=== PATIENT | female | born 1960 | race Caucasian/White ===

== ENCOUNTER 2021-08-31 11:21 | Emergency (ER) | payer BC ==
[2021-08-31] MEDS ORDERED: IBUPROFEN 600 MG TAB PO STA (13:33)
--- NOTE | 2021-08-31 13:37 | ED ---
General Adult HPI - General Chief complaint: Upper Respiratory Infection Stated complaint: Covid+/BAM Time Seen by Provider: 08/31/21 13:06 Source: patient, RN notes reviewed Mode of arrival: ambulatory Limitations: no limitations - History of Present Illness Initial comments: 61-year-old female presents to the emergency department requesting monoclonal antibody infusion. Patient states she was diagnosed with Covid, and symptoms began yesterday. States she has had a fever, headache, and body aches. Has a nonproductive cough that patient states is normal for her. States she has a history of COPD with reduced lung capacity. Has been vaccinated, but did not receive the booster. Tylenol prior to arrival. Denies chest pain, tightness, shortness of breath, abdominal pain, nausea, vomiting, diarrhea, or dysuria. - Related Data Previous Rx's Medication Instructions Recorded Ibuprofen [Motrin] 600 mg PO Q8HR PRN #30 tab 08/31/21 Allergies Allergy/AdvReac Type Severity Reaction Status Date / Time pseudoephedrine Allergy Unknown Verified 08/31/21 12:58 [From [facility]] Review of Systems ROS Statement: Those systems with pertinent positive or pertinent negative responses have been documented in the HPI. ROS Other: All systems not noted in ROS Statement are negative. Past Medical History Past Medical History: COPD, Hyperlipidemia Additional Past Medical History / Comment(s): 30% lung capacity History of Any Multi-Drug Resistant Organisms: MRSA Date of last positivie culture/infection: 2004 MDRO Source:: lungs Past Surgical History: Tubal Ligation Additional Past Surgical History / Comment(s): collapsed lungs Past Psychological History: No Psychological Hx Reported Smoking Status: Former smoker Past Alcohol Use History: Occasional Past Drug Use History: None Reported General Exam Limitations: no limitations General appearance: alert, in no apparent distress (Well-developed, well- nourished female in no acute distress. Initial temperature 98.9, pulse 80, respirations 20, blood pressure 116/67, pulse ox 94% on room air.) ENT exam: Present: normal exam, normal oropharynx, mucous membranes moist Respiratory exam: Present: decreased breath sounds (Slightly decreased breath sounds throughout the lung mcneill; no adventitious noises.). Absent: respiratory distress, wheezes, rales, rhonchi, stridor Cardiovascular Exam: Present: regular rate, normal rhythm, normal heart sounds. Absent: systolic murmur, diastolic murmur, rubs, gallop, clicks GI/Abdominal exam: Present: soft, normal bowel sounds. Absent: distended, tenderness, guarding, rebound, rigid Neurological exam: Present: alert, oriented X3, CN II-XII intact Psychiatric exam: Present: normal affect, normal mood Skin exam: Present: warm, dry, intact, normal color. Absent: rash Course Vital Signs 08/31/21 08/31/21 12:53 15:14 Temperature 98.9 F 98.7 F Pulse Rate 88 72 Respiratory 20 16 Rate Blood Pressure 116/67 118/67 O2 Sat by Pulse 94 L 90 L Oximetry - Reevaluation(s) Reevaluation #1: 08/31/21 15:50 When reviewing discharge instructions with patient, she states that her coal sampler tells her to go to the emergency room if her oxygen level is in the low 80s as a normal range for her is 85%-92%. Medical Decision Making - Medical Decision Making 61-year-old female with a past medical history of COPD presents to the emergency department requesting monoclonal antibody infusion. Patient states she tested positive for Covid today, with symptom onset yesterday. Upon exam, patient is well-appearing and in no acute distress. Room air saturation 90% or greater. She is afebrile, not tachycardic nor tachypneic. No cough, congestion, shortness of breath, or difficulty breathing. Lungs sounds are slightly diminished. Chest x-ray show COPD with no acute active disease process. Risks and benefits of monoclonal antibody infusion were discussed with patient. She verbalizes understanding and is agreeable. Infusion tolerated without any adverse reaction. Will be discharged home to follow up with her primary care provider and/or coal sampler. Strict return parameters were discussed in detail. Patient verbalizes understanding and agrees with this plan. This patient's care was discussed with my attending Dr. Tripp. - Radiology Data Radiology results: report reviewed, image reviewed Two-view chest x-ray was obtained. Report was reviewed in its entirety. Impression per Dr. Armando is COPD. No active cardiopulmonary disease. No sal nge. Disposition Clinical Impression: COVID-19 Disposition: HOME SELF-CARE Condition: Stable Instructions (If sedation given, give patient instructions): Coronavirus Disease 2019 (COVID-19) Additional Instructions: Continue your regular home medication regimen. May take Tylenol or Motrin as needed for fever or body aches. You should continue to isolate for 10 days from symptom onset. Take vitamin C, vitamin D, and Zinc few are not already taking a multivitamin. Consider telephone or video visit for follow-up with your coal sampler or PCP on Friday. Return to the emergency department with any new, worsening, or concerning symptoms. Prescriptions: Ibuprofen [Motrin] 600 mg PO Q8HR PRN #30 tab PRN Reason: Pain Is patient prescribed a controlled substance at d/c from ED?: No Referrals: Shanna Herrera DO [Primary Care Provider] - 1-2 days Time of Disposition: 16:00
[2021-08-31] MEDS ORDERED: SODIUM CHLORIDE 0.9% 50 ML IVPB ONE (14:00)
[2021-08-31] MEDS ORDERED: BAMLANIVIMAB (EUA) 700 MG, ETESEVIMAB (EUA) 1,400 MG in SODIUM CHLORIDE 0.9% 100 ML IVPB ONE (14:30)
[2021-08-31 15:16] VITALS: BP 118/67; PULSE 72; RESP 16; TEMP 98.7
--- NOTE | 2021-08-31 15:29 | XR ---
EXAMINATION TYPE: XR chest 2V DATE OF EXAM: 08/31/2021 COMPARISON: 05/11/2010 HISTORY: Cough. TECHNIQUE: FINDINGS: Heart and mediastinum are within normal limits. Lungs are clear of consolidation. There is mild flattening of the diaphragm. There are no hilar masses. The bony thorax is intact. IMPRESSION: COPD. No active cardiopulmonary disease. No change.
== END 2021-08-31 15:52 | disposition home or self-care (01) ==
LOC: EC 11:21
DX: U07.1 COVID-19 (principal); J44.9 Chronic obstructive pulmonary disease, unspecified; Z88.8 Allergy status to other drugs, medicaments and biological substances; Z87.891 Personal history of nicotine dependence
CPT/HCPCS: 71046; 99284; J3490

== ENCOUNTER → 2022-10-01 | Outpatient (CLI) | payer BC, OTHER ==
--- NOTE | 2022-10-01 14:47 | MR ---
EXAMINATION TYPE: MR humerus LT wo/w con DATE OF EXAM: 10/01/2022 COMPARISON: None. HISTORY: Palpable lump on left humerus, extends from axilla to elbow, markers placed at each end. CONTRAST: Standard multiplanar, multisequence MRI departmental protocol images were obtained without contrast a nd with 6 mL intravenous Gadavist gadolinium contrast. FINDINGS: The area of concern marked by distal marker distal humeral level coronal image 20 and by pr oximal marker in the left axilla proximal humeral diaphyseal level axial image 33. These are along th e medial aspect of the left humerus. Left humerus appears intact. No suspicious edema or enhancement is seen. There are normal vessels jose francisco ng medial portion of the left humerus identified. There is no concerning solid or cystic mass or flui d collection in the left humerus with particular attention to area of clinical concern medial portion and soft tissue. Visualized portion of the left shoulder and elbow joints appear within normal limit s. Muscle bulk is maintained. IMPRESSION: As above. No obvious suspicious medial mass identified.
== END | disposition home or self-care (01) ==
LOC: RADMRIMAIN 11:35
PROVIDERS: ATTEND Physician Assistant
DX: M79.89 Other specified soft tissue disorders (principal); R22.32 Localized swelling, mass and lump, left upper limb
CPT/HCPCS: 73220; A9585

== ENCOUNTER 2023-10-09 09:49 | Day surgery (SDC) | payer BC, OTHER ==
--- NOTE | 2023-10-09 07:37 | P.GSHP ---
History of Present Illness H&P Date: 10/09/23 CHIEF COMPLAINT: Colon screen HISTORY OF PRESENT ILLNESS: The patient is a 63-year-old female who presents for colon screen. Lower endoscopy was offered for further evaluation and management. PAST MEDICAL HISTORY: Please see list. PAST SURGICAL HISTORY: Please see list. MEDICATIONS: Please see list. ALLERGIES: Please see list. SOCIAL HISTORY: No illicit drug use FAMILY HISTORY: No reports of Crohn disease or ulcerative colitis. REVIEW OF ORGAN SYSTEMS: CONSTITUTIONAL: No reports of fevers or chills. PHYSICAL EXAM: VITAL SIGNS: Stable GENERAL: Well-developed pleasant in no acute distress. HEENT: No scleral icterus. Extraocular movements grossly intact. Moist buccal mucosa. NECK: Supple without lymphadenopathy. CHEST: Unlabored respirations. Equal bilateral excursions. CARDIOVASCULAR: Regular rate and rhythm. Distal 2+ pulses. ABDOMEN: Soft, nontender, nondistended. MUSCULOSKELETAL: No clubbing, cyanosis, or edema. ASSESSMENT: 1. Colon screen. PLAN: 1. Recommend proceeding with a lower endoscopy Past Medical History Past Medical History: COPD, Hyperlipidemia, Osteoarthritis (OA), Respiratory Disorder Additional Past Medical History / Comment(s): "58% lung capacity", home O2 2L/min used to use but hasn't needed for about 1.5 yrs unless she is sick, insomnia, osteoporosis History of Any Multi-Drug Resistant Organisms: MRSA Date of last positivie culture/infection: 2004 MDRO Source:: lungs Past Surgical History: Tubal Ligation Additional Past Surgical History / Comment(s): collapsed lungs - chest tube(once at 16 yrs. age, 45 yrs age - after shoulder injection), laser eye surgery Past Anesthesia/Blood Transfusion Reactions: No Reported Reaction Smoking Status: Former smoker Medications and Allergies Home Medications Medication Instructions Recorded Confirmed Type Ibuprofen [Motrin] 600 mg PO Q8HR PRN #30 tab 08/31/21 10/07/23 Rx Albuterol Inhaler [Ventolin Hfa 1 - 2 puff INHALATION Q6H PRN 10/07/23 10/07/23 History Inhaler] Alendronate Sodium [Fosamax] 70 mg PO 10/07/23 History Cyclobenzaprine [Flexeril] 10 mg PO HS 10/07/23 10/07/23 History Dextroamphetamine/Amphetamine 20 mg PO QAM 10/07/23 10/07/23 History [Adderall] Fluticasone/Umeclidin/Vilanter 1 puff INHALATION QAM 10/07/23 10/07/23 History [Trelegy Ellipta 200-62.5-25] HYDROcodone/APAP 10-325MG [[place] 1 tab PO Q6HR PRN 10/07/23 10/07/23 History 10-325] Simvastatin [Zocor] 20 mg PO HS 10/07/23 10/07/23 History cloNIDine HCL 0.1 mg PO HS 10/07/23 10/07/23 History traZODone HCL 150 mg PO HS 10/07/23 10/07/23 History Allergies Allergy/AdvReac Type Severity Reaction Status Date / Time pseudoephedrine Allergy Rash/Hives Verified 10/07/23 10:06 [From [facility]]
[~2023-10-09 09:49] MED LIST: LIDOCAINE 1% (10MG/ML) FOR IV START INTRADERMA PRN
[2023-10-09] MEDS: LACTATED RINGERS 1,000 ML IV SCH (10:01)
[2023-10-09] MEDS ORDERED: PROPOFOL 10 MG/ML 20 ML VIAL IV ONE (10:22)
[2023-10-09 10:30] VITALS: TEMP 97.7
--- NOTE | 2023-10-09 11:11 | P.PCN ---
Date of Procedure: 10/09/23 Description of Procedure: PREOPERATIVE DIAGNOSIS: Personal history of colon polyps Family history malignant colon polyps Colonoscopy screening POSTOPERATIVE DIAGNOSIS: Tubular adenoma cecum Tubular adenoma ascending colon Tubular adenoma transverse colon Internal hemorrhoids, grade 2 OPERATION: Colonoscopy to the ileocecal valve and appendiceal orifice, cecum Colonoscopy with hot snare polypectomy SURGEON: Violet Laurent MD. ANESTHESIA: MAC. INDICATIONS: The patient is an 63-year-old male who presents family history of malignant colon polyps and personal history of colon polyps. Last colonoscopy 5 years. Benefits and risks were described and informed consent was obtained. DESCRIPTION OF PROCEDURE: The patient had undergone Sutab prep. The patient had been brought into the operating room and laid in the left lateral decubitus position. After adequate intravenous sedation, the rectum was examined with 2% lidocaine jelly. External hemorrhoids were encountered. The rectal tone was within normal limits. No lesions were palpated in the rectal vault. An Olympus colonoscope was advanced until the cecum, ileocecal valve and appendiceal orifice were clearly viewed. The prep was good. No large sigmoid diverticulosis was encountered. Colonic polyps were found and removed. No evidence of focal colitis was found. Retroflexion of the scope demonstrated grade 2 internal hemorrhoids without active bleeding or inflammation. The colon was desufflated. The patient had tolerated the procedure well. Withdrawal time was over 6 minutes. FINDINGS: Aronchick preparation quality scale 1+ (1-5) Internal hemorrhoids, grade 2 External hemorrhoids, grade 2. No arteriovenous malformations. No sigmoid diverticulosis Removal of 3 polyps: - Snare polypectomy ascending, 5 mm tubulovillous adenoma - Snare polypectomy cecum, 10 mm tubulovillous - Snare polypectomy transverse colon, 12 mm tubulovillous No focal colitis. RECOMMENDATIONS: Given severity of tubular adenomas, recommend repeat colonoscopy 2 years, 2025 Plan - Discharge Summary Discharge Rx Participant: Yes New Discharge Prescriptions: Continue Ibuprofen [Motrin] 600 mg PO Q8HR PRN #30 tab PRN Reason: Pain traZODone HCL 150 mg PO HS cloNIDine HCL 0.1 mg PO HS Fluticasone/Umeclidin/Vilanter [Trelegy Ellipta 200-62.5-25] 1 puff INHALATION QAM Dextroamphetamine/Amphetamine [Adderall] 20 mg PO QAM Alendronate Sodium [Fosamax] 70 mg PO Albuterol Inhaler [Ventolin Hfa Inhaler] 1 - 2 puff INHALATION Q6H PRN PRN Reason: Shortness Of Breath Cyclobenzaprine [Flexeril] 10 mg PO HS Simvastatin [Zocor] 20 mg PO HS HYDROcodone/APAP 10-325MG [[place] 10-325] 1 tab PO Q6HR PRN PRN Reason: Pain Discharge Medication List Ibuprofen [Motrin] 600 mg PO Q8HR PRN #30 tab 08/31/21 [Rx] Albuterol Inhaler [Ventolin Hfa Inhaler] 1 - 2 puff INHALATION Q6H PRN 10/07/23 [History] Alendronate Sodium [Fosamax] 70 mg PO 10/07/23 [History] Cyclobenzaprine [Flexeril] 10 mg PO HS 10/07/23 [History] Dextroamphetamine/Amphetamine [Adderall] 20 mg PO QAM 10/07/23 [History] Fluticasone/Umeclidin/Vilanter [Trelegy Ellipta 200-62.5-25] 1 puff INHALATION QAM 10/07/23 [History] HYDROcodone/APAP 10-325MG [[place] 10-325] 1 tab PO Q6HR PRN 10/07/23 [History] Simvastatin [Zocor] 20 mg PO HS 10/07/23 [History] cloNIDine HCL 0.1 mg PO HS 10/07/23 [History] traZODone HCL 150 mg PO HS 10/07/23 [History] Follow up Appointment(s)/Referral(s): Violet Laurent MD [STAFF PHYSICIAN] - As Needed Patient Instructions/Handouts: Colorectal Polyps (GEN), Diverticulitis Diet (ED) Activity/Diet/Wound Care/Special Instructions: Repeat colonoscopy 2 years, 2025 Discharge Disposition: HOME SELF-CARE
[2023-10-09 12:02] VITALS: BP 122/75; PULSE 74; RESP 18
== END 2023-10-09 11:58 | disposition home or self-care (01) ==
LOC: ORWHC2ENDO 09:49
PROVIDERS: ATTEND Surgery Plastic and Reconstructive Surgery
DX: Z12.11 Encounter for screening for malignant neoplasm of colon (principal); D12.0 Benign neoplasm of cecum; D12.2 Benign neoplasm of ascending colon; D12.3 Benign neoplasm of transverse colon; K64.1 Second degree hemorrhoids; J44.9 Chronic obstructive pulmonary disease, unspecified; E78.5 Hyperlipidemia, unspecified; M19.90 Unspecified osteoarthritis, unspecified site; Z64.1 Problems related to multiparity; Z86.010 Personal history of colon polyps; Z88.0 Allergy status to penicillin; Z79.899 Other long term (current) drug therapy; Z98.51 Tubal ligation status; Z87.891 Personal history of nicotine dependence; Z79.51 Long term (current) use of inhaled steroids; Z80.0 Family history of malignant neoplasm of digestive organs
CPT/HCPCS: 88305; 45385; J2704